=== PATIENT | female | born 1970 | race Two or more races ===

== ENCOUNTER 2021-09-28 00:15 | Day surgery (SDC) | payer OTHER, SELFPAY ==
[2021-09-21 13:58] VITALS: BMI 27.1
--- NOTE | 2021-09-21 14:25 | PC.NURSE ---
Report to the Outpatient Waiting Room, entrance under the green pavilion located off [facility], at time 1200 on date 09/28/21. OR Time: 1400. - You will be asked a series of questions to screen for COVID 19 for your protection. - A mask is required within the hospital. - No visitors are allowed at this time. Preoperative COVID Testing Requirements: No COVID Test needed if: (proof is required; if not received patient will have Rapid Test prior to entry) - Patient has received COVID Vaccine at least 14 days prior to procedure date or - Patient has positive COVID test result within last 90 days of surgery date. COVID Test needed if above criteria is not met Patients may have clear liquids (water, carbonated beverages, clear teas, apple juice) until 3 hours prior to surgery with a maximum of 20 ounces. - No food from midnight until time of surgery Take the following medications with a SIP of water the morning of surgery: NONE Medications to discontinue per physician: N/A Date to take last dose: N/A Please no make-up, nail maori, hairspray, perfume, deodorant, or body powder the day of surgery. No jewelry (including any body piercings) or valuables the day of surgery, leave them at home. Please take a shower or bath the night before, or the morning of, surgery with an antibacterial soap. Wear comfortable, loose fitting clothing. - Jewelry must be removed prior to entering the operating room. Rings and piercings that are not removed may be cut off. - The hospital will not accept responsibility for valuables. - Please leave all valuables, including medications, at home the day of surgery. If you are going home after surgery, a licensed commercial driver's license driver must drive you home. - NO public transportation without another adult. - We recommend that an adult stay with you for 24 hours following discharge. - We also recommend that you do not drive, make important decision, drink alcoholic beverages, or take any drugs that were not prescribed by your health care provider for at least 24 hours after your discharge time. Follow any additional instructions given to you from your surgeon. Telephone instructions given to NIELS CAMPBELL and asked if any additional questions and then verbalized understanding. Patient advised to call surgeon office or pre surgery nurse liaison [phone] if any additional questions.
[2021-09-28] VITALS (10 sets, daily range): BP systolic 136–165; BP diastolic 67–95; PULSE 83–102; RESP 13–25; TEMP 36.1–36.3; O2SAT 95–100
[2021-09-28] MEDS: LACTATED RINGERS 1,000 ML 30 ML IV CONT ×2 (12:03→13:49)
--- NOTE | 2021-09-28 12:04 | WPDHPUPDATE1 ---
History and Physical Update Update Date/Time: 09/28/21 12:04 History and Physical has been reviewed, including an updated exam of the patient. There are NO changes in the patient's condition. Risks, benefits, and alternatives have been discussed and questions answered. Patient agrees to proceed with procedure.
--- NOTE | 2021-09-28 12:15 | W.PM.PROC2 ---
Procedure Note - Detailed Date of Procedure 09/28/21 Pre-op Diagnosis Hx of Breast Augmentation Post-op Diagnosis same Procedure Performed Bilateral breast implant exchange Surgeon Chaitanya Otero MD Anesthesia general Findings Previous implants textured 330 cc implants. Submuscular. Bilateral partial capsulectomy sent to pathology. No worrisome features. New implants: Bilateral Praveena Caballero SoftTouch implants 520cc Same plane (submuscular) Right - REF# [facility]-520 SN [id number] Left - REF# [id number] SN [id number] Description of Procedure Preoperatively the risks, benefits, alternatives were discussed in extensive detail. I want her to be very realistic about the risks involved as well as expectations. Made sure answered all of her questions to her satisfaction. She understands we are replacing implants in the same plane however changing to an IMF incision. She will still have a degree of ptosis. She desires in the future she could do a mastopexy. She declines doing it at this procedure. All questions were answered to her satisfaction today. Consent obtained. Patient was taken to the operating room placed supine on the operating table. Anesthesia provided by anesthesiology and prepped and draped in a standard sterile fashion. Surgical time-out was taken. 1% lidocaine and 0.25% Marcaine with epinephrine was used to provide a field block. Fifteen blade used to make an IMF incision. Dissection was continued down to the old implants were identified. These were removed as well as a portion of the capsule. Implants were submuscular. I then copiously irrigated with 3 L of saline containing solution and verified a strict hemostasis. Throughout the procedure we had Tegaderm nipple Ayala in place. I used triple antibiotic Betadine solution and copiously irrigated the pocket. Using a Todd funnel in a no-touch technique the implant was introduced into the pocket. This was closed using 2-0 Vicryl followed by 3-0 Monocryl in a running subcuticular 4-0 Monocryl and tissue glue. Dressings were placed. Estimated Blood Loss 30 Drains No Packing No Pathology yes (Bilateral breast implant capsules.) Complications No immediate complications Condition stable Disposition PACU
--- NOTE | 2021-09-28 12:18 | P.PNAN_ITS ---
Anes - Initial Pre Proc Eval Procedure: Operation Date: 09/28/21 14:00 Proposed Procedures p Bilateral Breast Implant Exchange - Chaitanya Otero MD Date/Time: 09/28/21 12:18 Surgeon: Chaitanya Otero MD Pre Op Diagnosis: Hx of Breast Augmentation Patient Data Age: 51 Gender: F Height: 1.7 m Weight: 78.1 kg Allergies Allergy/AdvReac Type Severity Reaction Status Date / Time No Known Allergies Allergy Verified 09/21/21 13:56 Home Medications Medication Instructions Recorded Confirmed Type estradiol 1 mg tablet 1 mg PO HS 02/22/21 09/21/21 History gabapentin 300 mg capsule 300 mg PO HS 02/22/21 09/21/21 History meloxicam 15 mg tablet 15 mg PO HS 02/22/21 09/21/21 History tizanidine 4 mg capsule 4 mg PO QHS 02/22/21 09/21/21 History trazodone 150 mg tablet 150 mg PO QHS PRN 02/22/21 09/21/21 History venlafaxine 150 mg tablet,extended 150 mg PO HS 02/22/21 09/21/21 History release 24 hr docusate sodium 100 mg capsule 100 mg PO DAILY #14 cap 09/13/21 09/21/21 Rx ondansetron HCl 4 mg tablet 4 mg PO Q8H #21 tablet 09/13/21 09/21/21 Rx hydrocodone 5 mg-acetaminophen 325 1 tablet PO Q6H PRN #30 tablet 09/14/21 09/21/21 Rx mg tablet Patient hx anesthesia problems: none Family hx anesthesia problems: none Results Review: All pre-operative results and documents have been reviewed as part of the pre-operative evaluation. [facility] Past Medical History Medical History Arthritis Depression Nerve pain Surgical History Surgical History History of arthroscopy of knee History of cosmetic plastic surgery Breast augmentation and liposuction Social History Social History Smoking status: Unknown if ever smoked Alcohol intake: never Substance use: never Substance use type: does not use Living arrangements: with family Additional living arrangements comments: SON Spiritual care concerns: No Anes - Eval Final PreProcedure Day of Procedure 09/28/21 12:18 Patient weight: normal Heart: regular rate and rhythm Lungs: clear to auscultation Airway: Mallampati scale class II Neurological: alert and oriented Last oral intake: >/= 8 hours ASA classification: II Emergent: no Anesthetic plan: proceed Anesthesia type and monitoring: general LMA and standard monitoring Results Review: All pre-operative results and documents have been reviewed as part of the pre-operative evaluation. Informed Consent: The patient's anesthetic plan and its attendant risks and benefits were discussed with the patient/family/POA. Questions were solicited and answers provided to the satisfaction of the patient/family/POA.
[2021-09-28] MEDS: ceFAZolin 2 GM/D5W 50 ML 2 GM/50 ML BAG IVPB (12:37)
[2021-09-28] MEDS: LIDO 1%/EPINEPHRINE 1:100,000 50 ML VIAL 30 ML INFILTRATE (12:45)
[2021-09-28] MEDS: BUPIVACAINE HCL 0.25% PF 30 ML VIAL INFILTRATE (13:17)
[2021-09-28] MEDS: ONDANSETRON INJ 4 MG/2 ML VIAL IV PUSH (14:16)
[2021-09-28] MEDS: SCOPOLAMINE 1.5 MG PATCH TRANSDERM (14:28)
[2021-09-28] MEDS: diphenhydrAMINE HCl INJ 50 MG/ML VIAL 12.5 MG IV PUSH (14:28)
[2021-09-28] MEDS: oxyCODONE HCL (*CRX) 5 MG TAB IR PO (15:26)
== END 2021-09-28 16:10 | disposition home or self-care (01) ==
PROVIDERS: PCP Family Medicine; Visit Provider Surgery Plastic and Reconstructive Surgery
PROC: (CPT 19342; principal; 2021-09-28 14:00)
DX: Z41.1 Encounter for cosmetic surgery (principal); F32.9 Major depressive disorder, single episode, unspecified
CPT/HCPCS: 19370; 19325; 88304; A9270; J0690; J1100; J1200; J1580; J2250; J2405; J2704; J3010; J7120